=== PATIENT | female | born 1970 | race African-American/Black ===

== ENCOUNTER 2017-11-18 13:13 | Inpatient (IN) | payer OTHER, MEDICAID ==
[~2017-11-18] VITALS: Ht 175.3 cm; Wt 82.1 kg
[~2017-11-18 13:13] MED LIST: AYGESTIN 5 MG TA5 M1 PO; NAPROSYN500 MG PO; NOHOMEMEDICATIONS
[2017-11-18 13:25] VITALS: BP 147/90
[2017-11-18 14:09] LABS: URINE BILIRUBIN NEGATIVE (Negative); URINE BLOOD NEGATIVE (Negative); URINE CLARITY CLEAR; URINE COLOR STRAW; URINE GLUCOSE-RANDOM NEGATIVE (Negative); URINE KETONES NEGATIVE (Negative); URINE LEUKOCYTES-REFLEX NEGATIVE (Negative); URINE NITRITE-REFLEX NEGATIVE (Negative); URINE PROTEIN NEGATIVE (Negative); URINE SPECIFIC GRAVITY <= 1.005 (1.005-1.030); URINE UROBILINOGEN 0.2 E.U./dl (0.2-1.0)
[2017-11-18 15:20] LABS: HEMATOCRIT 38.2 % (37.0-47.0); HEMOGLOBIN 12.6 gm/dL (12.0-15.0); MCH 23.3 pg (26.0-34.0); MCHC 32.9 g/dL (28.0-37.0); MCV 70.9 fL (80.0-100.0); NUCLEATED RBCS 0 /100WBC; PLATELET COUNT* 181 thou/uL (150-400); RBC 5.39 mil/uL (4.20-5.00); RDW-CV 22.2 % (10.5-14.5); WBC 6.4 thou/uL (4.0-11.0)
[2017-11-18 15:55] LABS: ABSOLUTE LYMPHOCYTES 3.3 thou/uL (0.8-5.3); ABSOLUTE MONOCYTES 0.4 thou/uL (0.0-1.2); ABSOLUTE NEUTROPHILS 2.8 thou/uL (1.6-8.1); ANISOCYTOSIS 1+; ATYPICAL LYMPHS 16 %; HYPOCHROMASIA 2+; PLATELET ESTIMATE ADEQUATE; TARGET CELLS 2+
[2017-11-18 15:56] LABS: LARGE PLATELETS OCCASIONAL
[2017-11-18 16:20] LABS: CALCIUM 8.9 mg/dL (8.5-10.1); CREATININE 0.7 mg/dL (0.6-1.3); POTASSIUM 3.8 mmol/L (3.5-5.1)
[2017-11-18 16:25] LABS: ALBUMIN 3.6 g/dL (3.4-5.0); TOTAL BILIRUBIN 0.4 mg/dL (<0.1-1.0); TOTAL PROTEIN 8.7 g/dL (6.4-8.2)
[2017-11-18 16:25] LABS: AMP/METHAMP Negative (Negative); BARBITURATES Negative (Negative); BENZODIAZEPINES Negative (Negative); COCAINE Negative (Negative); METHADONE Negative (Negative); OPIATES Negative (Negative); PCP Negative (Negative); THC Negative (Negative)
[2017-11-18 19:44] VITALS: BP 90/69
[2017-11-18 20:00] VITALS: BP 114/57
[2017-11-18 21:17] LABS: CALCIUM 8.5 mg/dL (8.5-10.1); CREATININE 0.7 mg/dL (0.6-1.3); MAGNESIUM 1.6 mg/dL (1.8-2.4); POTASSIUM 3.6 mmol/L (3.5-5.1)
[2017-11-19] VITALS (8 sets, daily range): BP systolic 102–123; BP diastolic 63–86
[2017-11-19 05:29] LABS: ABSOLUTE EOSINOPHILS 0.1 thou/uL (0.0-0.7); ABSOLUTE LYMPHOCYTES 2.9 thou/uL (0.8-5.3); ABSOLUTE MONOCYTES 0.6 thou/uL (0.0-1.2); ABSOLUTE NEUTROPHILS 1.8 thou/uL (1.6-8.1); BASOPHILS 0.6 %; HEMATOCRIT 31.8 % (37.0-47.0); LYMPHOCYTES 52.8 %; MCH 23.3 pg (26.0-34.0); MCHC 33.4 g/dL (28.0-37.0); MCV 69.7 fL (80.0-100.0); MONOCYTES 11.5 %; MPV 10.4 fl. (7.2-11.1); NUCLEATED RBCS 0 /100WBC; PLATELET COUNT* 155 thou/uL (150-400); POLYS 34.1 %; RBC 4.56 mil/uL (4.20-5.00); RDW-CV 22.2 % (10.5-14.5); WBC 5.4 thou/uL (4.0-11.0)
[2017-11-19 05:37] LABS: HEMOGLOBIN 10.6 gm/dL (12.0-15.0)
[2017-11-19 05:54] LABS: ALBUMIN 2.8 g/dL (3.4-5.0); CALCIUM 8.1 mg/dL (8.5-10.1); CREATININE 0.7 mg/dL (0.6-1.3); POTASSIUM 3.8 mmol/L (3.5-5.1); TOTAL BILIRUBIN 0.5 mg/dL (<0.1-1.0); TOTAL PROTEIN 6.7 g/dL (6.4-8.2)
[2017-11-19 06:02] LABS: PLATELET ESTIMATE ADEQUATE
[2017-11-19 06:03] LABS: MICROCYTES 2+; POLYCHROMASIA 1+; TARGET CELLS 2+
[2017-11-19 06:04] LABS: ANISOCYTOSIS 2+; HYPOCHROMASIA 1+; OVALOCYTES 1+; POIKILOCYTOSIS 2+
[2017-11-19 09:10] LABS: URINE BILIRUBIN NEGATIVE (Negative); URINE BLOOD NEGATIVE (Negative); URINE CLARITY CLEAR; URINE COLOR YELLOW; URINE GLUCOSE-RANDOM NEGATIVE (Negative); URINE KETONES NEGATIVE (Negative); URINE LEUKOCYTES-REFLEX NEGATIVE (Negative); URINE NITRITE-REFLEX NEGATIVE (Negative); URINE PROTEIN NEGATIVE (Negative); URINE UROBILINOGEN 0.2 E.U./dl (0.2-1.0)
[2017-11-19 13:21] LABS: % SATURATION 21 % (20-39); IRON 83 ug/dL (50-175)
--- NOTE | 2017-11-19 16:15 | EKG ---
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
[2017-11-20] VITALS: BP 108/74
[2017-11-20 04:00] VITALS: BP 90/54
[2017-11-20 05:30] LABS: ABSOLUTE EOSINOPHILS 0.1 thou/uL (0.0-0.7); ABSOLUTE LYMPHOCYTES 2.6 thou/uL (0.8-5.3); ABSOLUTE MONOCYTES 0.5 thou/uL (0.0-1.2); ABSOLUTE NEUTROPHILS 1.7 thou/uL (1.6-8.1); BASOPHILS 0.8 %; EOSINOPHILS 1.1 %; HEMATOCRIT 34.3 % (37.0-47.0); HEMOGLOBIN 11.5 gm/dL (12.0-15.0); LYMPHOCYTES 53.7 %; MCH 23.5 pg (26.0-34.0); MCHC 33.6 g/dL (28.0-37.0); MCV 69.8 fL (80.0-100.0); MONOCYTES 9.6 %; MPV 10.4 fl. (7.2-11.1); NUCLEATED RBCS 0 /100WBC; PLATELET COUNT* 152 thou/uL (150-400); POLYS 34.8 %; RBC 4.91 mil/uL (4.20-5.00); RDW-CV 21.8 % (10.5-14.5); WBC 4.9 thou/uL (4.0-11.0)
[2017-11-20 05:40] LABS: ALBUMIN 3.1 g/dL (3.4-5.0); CALCIUM 8.5 mg/dL (8.5-10.1); CREATININE 0.7 mg/dL (0.6-1.3); POTASSIUM 3.9 mmol/L (3.5-5.1); TOTAL BILIRUBIN 0.6 mg/dL (<0.1-1.0); TOTAL PROTEIN 7.4 g/dL (6.4-8.2)
[2017-11-20 07:41] LABS: HYPOCHROMASIA 1+; MICROCYTES 2+; OVALOCYTES 1+; PLATELET ESTIMATE ADEQUATE
[2017-11-20 07:42] LABS: ANISOCYTOSIS 2+; POIKILOCYTOSIS 2+; POLYCHROMASIA Occasional; TARGET CELLS 1+
[2017-11-20 08:15] VITALS: BP 136/90
[2017-11-20 09:00] VITALS: BP 136/90
[2017-11-20] MEDS ORDERED: OXYBUTYNIN ER 55 MG PO (10:59)
[2017-11-20] MEDS ORDERED: PHENAZOPYRIDIN200 M2 PO (10:59)
[2017-11-20 12:22] VITALS: BP 112/73
[2017-11-20] MEDS ORDERED: ELMIRON 100 MG100 M1 PO (12:27)
[2017-11-20 13:22] VITALS: BP 112/73
[2017-11-21 16:11] LABS: HGB SOLUBILITY Negative (Negative); Hgb C 34.7 % (0.0)
--- NOTE | 2017-11-27 11:51 | CON ---
[address] [address] CONSULTATION Name: BRAYDEN MACIAS Room: [address] IN M.R.#: [id number] Admission: 11/18/17 Attend Phys: Vibha Haider Discharge: 11/20/17 Date of : 66 Report #: [id number] THIS REPORT FOR: //name// CC: Aris Peoples DATE OF SERVICE: 11/19/2017 HISTORY OF PRESENT ILLNESS: This is a 47-year-old female patient who was admitted with dizziness. Neurological consultation is being requested to evaluate any neurological etiology for the patient's dizziness. The patient indicates that her dizziness started a few months ago. It started spontaneously without any trauma. It was lasted just for a few minutes and eating made it better. This time, it is longer than that and she is still having dizziness. She indicated that dizziness is not a good term for this symptom she is having, it is more that she feels some dizzy and some imbalance. REVIEW OF SYSTEMS: Indicate that this patient has a history of anxiety, atypical chest pain, and chest wall pain. I carried out 14-point review of systems, she is not complaining of any visual symptoms now. In fact, she is not complaining of any significant symptom except as described above. She is not having any chest pain or respiratory difficulty. She did have some nausea. She denies any symptoms. She is not having any new musculoskeletal, constitutional, dermatological, hematological, throat, or allergic symptom. She does have history of anxiety. PAST MEDICAL HISTORY: Positive for 2 more episodes of dizziness. FAMILY HISTORY: Negative for early age stroke. SOCIAL HISTORY: She says she does not drink any alcohol or smoke. PHYSICAL EXAMINATION: The patient's examinations indicate she is alert and responsive. Her speech, concentration, fund of knowledge and memory is at her baseline. Cranial nerve examination 2-12 is unremarkable. She has symmetrical strength, sensation, reflexes, and tone in all 4 extremities. Reflexes may be somewhat diminished. She has no cerebellar sign or papilledema. I did make her walk, she is able to walk in tandem walk, she may be somewhat unstable. Her pulses are somewhat difficult to feel, but are palpable. She has no edema, cyanosis, or jaundice. She is a reasonably well-developed individual who does not have any dysmorphic features of eyes, ears, and face. Her vision and hearing looks adequate. Cardiac examinations indicate unremarkable heart sounds and there is no murmur or atrial fibrillation. No respiratory difficulty or rhonchi on either side. Blood pressure is 119/84, pulse is 75, temperature is 98.1, and blood pressure has fluctuated and has gone as low as 90/69. [place] [address] CONSULTATION Name: BRAYDEN MACIAS Room: [address] IN [facility].#: [id number] Admission: 11/18/17 Attend Phys: Vibha Haider Discharge: 11/20/17 Date of : 66 Report #: [id number] LABORATORY DATA: Indicate that hemoglobin has dropped from 12.6 to 10.6. She also has low magnesium, low calcium, and low albumin. She had an MRI of the brain and MRA of the head and neck and they were unremarkable. IMPRESSION: It is unlikely that there is any neurological etiology for the patient's dizziness. She should have an ENT and systemic workup to determine the etiology for that. Her blood pressure is somewhat low and she has multiple other blood abnormalities including low hemoglobins and I will suggest working that up. I do not believe any further neurological workup is indicated in this patient, but ENT and systemic workup should be done in this patient and I will defer to you. RECOMMENDATION: I do not believe there is any neurological etiology for the patient's symptoms and I do not think we need to do any further neurological workup in this patient. I think she should have systemic workup as well as ENT workup on multiple things summarized above and we will defer that to you. We will follow this patient as necessary. Thank you very much for this referral. <ELECTRONICALLY SIGNED> By: Kyler Sweeney MD 11/27/17 1151 1007 [id number] Sweeney MD /nt
== END 2017-11-20 15:31 | disposition home or self-care (01) | DRG 443 ==
LOC: M.ERS 13:13 → M.TBA-ER 16:46 → M.2W 16:46
PROVIDERS: Emergency Medicine; Physician Assistant; ADMIT Internal Medicine
DX: B19.20 Unspecified viral hepatitis C without hepatic coma (principal); R35.0 Frequency of micturition; Z88.6 Allergy status to analgesic agent; Z79.899 Other long term (current) drug therapy

== ENCOUNTER 2018-01-19 17:22 | Emergency (ER) | payer OTHER, MEDICAID ==
[~2018-01-19] VITALS: Ht 175.3 cm; Wt 72.6 kg
[~2018-01-19 17:22] MED LIST changes: +ELMIRON 100 MG100 M1 PO; +OXYBUTYNIN ER 55 MG PO; +PHENAZOPYRIDIN200 M2 PO
[2018-01-19] MEDS ORDERED: MYRBETRIQ50 MG PO (17:34)
[2018-01-19 17:53] LABS: URINE BILIRUBIN NEGATIVE (Negative); URINE BLOOD NEGATIVE (Negative); URINE CLARITY CLEAR; URINE COLOR YELLOW; URINE GLUCOSE-RANDOM NEGATIVE (Negative); URINE KETONES NEGATIVE (Negative); URINE LEUKOCYTES-REFLEX NEGATIVE (Negative); URINE NITRITE-REFLEX NEGATIVE (Negative); URINE PROTEIN NEGATIVE (Negative); URINE SPECIFIC GRAVITY <= 1.005 (1.005-1.030); URINE UROBILINOGEN 0.2 E.U./dl (0.2-1.0)
[2018-01-19] MEDS ORDERED: OXYBUTYNIN 5 MG5 M2 PO (18:03)
[2018-01-19 18:09] VITALS: BP 111/80
== END 2018-01-19 18:10 | disposition home or self-care (01) ==
LOC: M.ERS 17:22
PROVIDERS: Nurse Practitioner Psychiatric/Mental Health
DX: N32.81 Overactive bladder (principal); Z86.19 Personal history of other infectious and parasitic diseases; Z88.5 Allergy status to narcotic agent

== ENCOUNTER 2018-06-06 17:09 | Emergency (ER) | payer OTHER, MEDICAID ==
[~2018-06-06] VITALS: Ht 175.3 cm; Wt 75.3 kg
[~2018-06-06 17:09] MED LIST changes: +MYRBETRIQ50 MG PO; +OXYBUTYNIN 5 MG5 M2 PO
[2018-06-06] MEDS ORDERED: VITAMIN D1000 UNI1 PO (17:19)
[2018-06-06 17:42] LABS: ABSOLUTE EOSINOPHILS 0.1 thou/uL (0.0-0.7); ABSOLUTE LYMPHOCYTES 3.1 thou/uL (0.8-5.3); ABSOLUTE MONOCYTES 0.6 thou/uL (0.0-1.2); ABSOLUTE NEUTROPHILS 2.4 thou/uL (1.6-8.1); BASOPHILS 0.6 %; HEMATOCRIT 35.6 % (37.0-47.0); HEMOGLOBIN 11.8 gm/dL (12.0-15.0); LYMPHOCYTES 49.9 %; MCH 23.1 pg (26.0-34.0); MCHC 33.2 g/dL (28.0-37.0); MCV 69.7 fL (80.0-100.0); MONOCYTES 9.5 %; MPV 10.3 fl. (7.2-11.1); NUCLEATED RBCS 0 /100WBC; PLATELET COUNT* 185 thou/uL (150-400); RBC 5.11 mil/uL (4.20-5.00); RDW-CV 22.7 % (10.5-14.5); WBC 6.2 thou/uL (4.0-11.0)
[2018-06-06 17:46] LABS: ANION GAP 4 mmol/L (7-16); BUN 17 mg/dL (7-18); CALCIUM 8.6 mg/dL (8.5-10.1); CHLORIDE 102 mmol/L (98-107); CO2 29 mmol/L (21-32); CREATININE 0.9 mg/dL (0.6-1.3); GLUCOSE 111 mg/dL (70-99); POTASSIUM 3.7 mmol/L (3.5-5.1); SODIUM 135 mmol/L (136-145)
[2018-06-06 17:57] LABS: ALBUMIN 3.4 g/dL (3.4-5.0); ALKALINE PHOSPHATASE 83 U/L (46-116); NT-PRO BRAIN NAT PEPTIDE 44 pg/mL (<300); SGOT 19 U/L (15-37); SGPT 14 U/L (30-65); TOTAL BILIRUBIN 0.4 mg/dL (<0.1-1.0); TOTAL PROTEIN 8.2 g/dL (6.4-8.2); TROPONIN-I LEVEL <0.06 ng/mL (<0.06)
[2018-06-06 18:40] LABS: HYPOCHROMASIA 1+; PLATELET ESTIMATE ADEQUATE
[2018-06-06 18:41] LABS: ANISOCYTOSIS 1+; MICROCYTES 1+
[2018-06-06] MEDS ORDERED: ROBAXIN 750 MG750 M1 PO (19:04)
[2018-06-06] MEDS ORDERED: NABUMETONE 750750 M1 PO (19:04)
[2018-06-06 19:17] VITALS: BP 122/73
--- NOTE | 2018-06-08 10:35 | EKG ---
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
== END 2018-06-06 19:18 | disposition home or self-care (01) ==
LOC: M.ERS 17:09
PROVIDERS: Nurse Practitioner Family
DX: R07.89 Other chest pain (principal); S46.812A Strain of other muscles, fascia and tendons at shoulder and upper arm level, left arm, initial encounter; Z88.5 Allergy status to narcotic agent; X58.XXXA Exposure to other specified factors, initial encounter; Y93.89 Activity, other specified; Y92.89 Other specified places as the place of occurrence of the external cause; Y99.8 Other external cause status

== ENCOUNTER 2018-08-24 17:39 | Emergency (ER) | payer OTHER, MEDICAID ==
[~2018-08-24] VITALS: Ht 175.3 cm; Wt 75.3 kg
[~2018-08-24 17:39] MED LIST changes: +NABUMETONE 750750 M1 PO; +ROBAXIN 750 MG750 M1 PO; +VITAMIN D1000 UNI1 PO
[2018-08-24 18:07] LABS: URINE BILIRUBIN NEGATIVE (Negative); URINE BLOOD NEGATIVE (Negative); URINE CLARITY CLEAR; URINE COLOR YELLOW; URINE GLUCOSE-RANDOM NEGATIVE (Negative); URINE KETONES NEGATIVE (Negative); URINE LEUKOCYTES-REFLEX NEGATIVE (Negative); URINE NITRITE-REFLEX NEGATIVE (Negative); URINE PROTEIN NEGATIVE (Negative); URINE SPECIFIC GRAVITY 1.015 (1.005-1.030); URINE UROBILINOGEN 0.2 E.U./dl (0.2-1.0)
[2018-08-24 18:36] LABS: ABSOLUTE BASOPHILS 0.1 thou/uL (0.0-0.2); ABSOLUTE EOSINOPHILS 0.1 thou/uL (0.0-0.7); ABSOLUTE LYMPHOCYTES 3.7 thou/uL (0.8-5.3); ABSOLUTE MONOCYTES 0.7 thou/uL (0.0-1.2); ABSOLUTE NEUTROPHILS 3.5 thou/uL (1.6-8.1); EOSINOPHILS 0.9 %; HEMATOCRIT 32.2 % (37.0-47.0); HEMOGLOBIN 10.5 gm/dL (12.0-15.0); LYMPHOCYTES 45.3 %; MCH 22.6 pg (26.0-34.0); MCHC 32.7 g/dL (28.0-37.0); MCV 69.3 fL (80.0-100.0); MONOCYTES 9.1 %; NUCLEATED RBCS 0 /100WBC; PLATELET COUNT* 186 thou/uL (150-400); POLYS 43.7 %; RBC 4.65 mil/uL (4.20-5.00); RDW-CV 22.8 % (10.5-14.5); WBC 8.1 thou/uL (4.0-11.0)
[2018-08-24 18:41] LABS: CALCIUM 8.7 mg/dL (8.5-10.1); CREATININE 1.1 mg/dL (0.6-1.3); POTASSIUM 4.1 mmol/L (3.5-5.1)
[2018-08-24 18:45] LABS: ALBUMIN 3.3 g/dL (3.4-5.0); TOTAL BILIRUBIN 0.3 mg/dL (<0.1-1.0); TOTAL PROTEIN 7.7 g/dL (6.4-8.2)
[2018-08-24 19:04] LABS: ANISOCYTOSIS 2+; PLATELET ESTIMATE ADEQUATE; TARGET CELLS 2+
[2018-08-24 19:20] VITALS: BP 140/83
== END 2018-08-24 19:21 | disposition home or self-care (01) ==
LOC: M.ERS 17:39
PROVIDERS: Nurse Practitioner Family
DX: D64.9 Anemia, unspecified (principal); Z88.5 Allergy status to narcotic agent; Z86.19 Personal history of other infectious and parasitic diseases

== ENCOUNTER 2020-07-24 17:30 | Emergency (ER) | payer OTHER ==
[~2020-07-24] VITALS: Ht 175.3 cm; Wt 76.2 kg
[~2020-07-24 17:30] MED LIST changes: +CARAFATE 1 GM TA1 G1 PO
[2020-07-24 18:17] LABS: URINE BILIRUBIN NEGATIVE (Negative); URINE BLOOD NEGATIVE (Negative); URINE CLARITY CLEAR; URINE COLOR YELLOW; URINE GLUCOSE-RANDOM NEGATIVE (Negative); URINE KETONES NEGATIVE (Negative); URINE LEUKOCYTES-REFLEX NEGATIVE (Negative); URINE NITRITE-REFLEX NEGATIVE (Negative); URINE PROTEIN NEGATIVE (Negative); URINE UROBILINOGEN 0.2 E.U./dl (0.2-1.0)
[2020-07-24] MEDS ORDERED: MACROBID 100 M100 M2 PO (18:53)
[2020-07-24] MEDS ORDERED: PYRIDIUM100 M1 PO (18:53)
[2020-07-24 18:59] VITALS: BP 124/91
== END 2020-07-24 18:59 | disposition home or self-care (01) ==
LOC: M.ERS 17:30
PROVIDERS: Nurse Practitioner Family
DX: N34.2 Other urethritis (principal); Z88.5 Allergy status to narcotic agent; Z90.89 Acquired absence of other organs; Z86.19 Personal history of other infectious and parasitic diseases

== ENCOUNTER 2021-07-12 17:02 | Emergency (ER) | payer OTHER ==
[~2021-07-12] VITALS: Ht 175.3 cm; Wt 72.6 kg
[~2021-07-12 17:02] MED LIST changes: +MACROBID 100 M100 M2 PO; +PYRIDIUM100 M1 PO
[2021-07-12] MEDS ORDERED: FLEXERIL PO (18:28)
[2021-07-12] MEDS ORDERED: MEDROLDOSEPACK PO (18:28)
[2021-07-12 18:35] VITALS: BP 145/92
== END 2021-07-12 18:35 | disposition home or self-care (01) ==
LOC: M.ERS 17:02
DX: M54.2 Cervicalgia (principal); M54.6 Pain in thoracic spine; Z88.5 Allergy status to narcotic agent; Z90.89 Acquired absence of other organs; V49.49XA Driver injured in collision with other motor vehicles in traffic accident, initial encounter; Y93.89 Activity, other specified; Y92.89 Other specified places as the place of occurrence of the external cause; Y99.8 Other external cause status